=== PATIENT | female | born 1985 | race Two or more races ===

== ENCOUNTER 2019-11-26 09:21 | Outpatient (CLI) | payer OTHER ==
[~2019-11-26] VITALS: Ht 154.9 cm; Wt 59.9 kg
== END 2019-11-26 12:42 | disposition home or self-care (01) ==
LOC: OFIC 805 09:21
DX: J32.8 Other chronic sinusitis (principal); R09.81 Nasal congestion; J37.0 Chronic laryngitis

== ENCOUNTER → 2019-12-27 | Outpatient (CLI) | payer OTHER ==
[~2019-12-27] VITALS: Ht 152.4 cm; Wt 59.9 kg
== END | disposition home or self-care (01) ==
LOC: OFIC 805 09:30
DX: J32.8 Other chronic sinusitis (principal); R09.81 Nasal congestion; J30.89 Other allergic rhinitis

== ENCOUNTER 2021-02-18 14:30 | Outpatient (CLI) | payer OTHER | END 2021-02-18 15:27 | disposition home or self-care (01) | LOC: OFIC 805 14:30 | PROVIDERS: ATTEND Otolaryngology Otology & Neurotology | DX: J32.8 Other chronic sinusitis (principal); R09.81 Nasal congestion; J30.89 Other allergic rhinitis ==

== ENCOUNTER 2021-09-28 12:39 | Outpatient (CLI) | payer OTHER | END 2021-09-28 15:40 | disposition home or self-care (01) | LOC: RAD 12:39 | PROVIDERS: ATTEND Orthopaedic Surgery | DX: M25.561 Pain in right knee (principal); M25.562 Pain in left knee ==

== ENCOUNTER 2021-09-30 09:13 | Outpatient (CLI) | payer OTHER | END 2021-09-30 09:27 | disposition home or self-care (01) | LOC: MRI 09:13 | PROVIDERS: ATTEND Orthopaedic Surgery | DX: M25.562 Pain in left knee (principal) | CPT/HCPCS: 73721 ==

== ENCOUNTER 2023-05-28 13:59 | Emergency (ER) | payer OTHER ==
[~2023-05-28] VITALS: Ht 154.9 cm; Wt 55.3 kg
[~2023-05-28 13:59] MED LIST: NAPROXEN SODIU550 MG PO
[2023-05-28] MEDS ORDERED: ZYRTEC10 M3 PO (14:26)
[2023-05-28] MEDS ORDERED: DICY20TA PO (17:37)
[2023-05-28] MEDS ORDERED: PEPCID AC20 MG PO (17:37)
[2023-05-28] MEDS ORDERED: INTESTINEX680 M1 PO (17:37)
== END 2023-05-28 18:18 | disposition home or self-care (01) ==
LOC: ER 13:59
DX: K52.9 Noninfective gastroenteritis and colitis, unspecified (principal); R10.9 Unspecified abdominal pain

== ENCOUNTER 2023-11-10 15:16 | Outpatient (CLI) | payer OTHER ==
[~2023-11-10 15:16] MED LIST changes: +DICY20TA PO; +INTESTINEX680 M1 PO; +PEPCID AC20 MG PO; +ZYRTEC10 M3 PO
== END 2023-11-10 15:23 | disposition home or self-care (01) ==
LOC: RAD 15:16
DX: M79.671 Pain in right foot (principal)

== ENCOUNTER 2025-01-01 12:47 | Outpatient (CLI) | payer OTHER ==
[~2025-01-01 12:47] MED LIST changes: +DICLOFENAC POTA50 MG PO
== END 2025-01-01 13:03 | disposition home or self-care (01) ==
LOC: MRI 12:47
PROVIDERS: ATTEND Physical Medicine & Rehabilitation
DX: M54.50 Low back pain, unspecified (principal)
CPT/HCPCS: 72148

== ENCOUNTER 2025-03-12 13:17 | Outpatient (CLI) | payer OTHER | END 2025-03-12 13:23 | disposition home or self-care (01) | LOC: RAD 13:17 | PROVIDERS: ATTEND Physical Medicine & Rehabilitation | DX: M17.12 Unilateral primary osteoarthritis, left knee (principal); M17.11 Unilateral primary osteoarthritis, right knee ==

== ENCOUNTER 2025-04-30 13:06 | Outpatient (CLI) | payer OTHER | END 2025-04-30 13:08 | disposition home or self-care (01) | LOC: MRI 13:06 | PROVIDERS: ATTEND Physical Medicine & Rehabilitation | DX: M25.561 Pain in right knee (principal) | CPT/HCPCS: 73721 ==